=== PATIENT | female | born 1965 | race Caucasian/White ===

== ENCOUNTER → 2021-05-07 | Outpatient (CLI) | payer OTHER ==
[~2021-05-07] MED LIST: Aspir 8181 MG PO; Excedrin Extra1 EACH PO; FAMO20 PO; HYOS.125 SL; IBUP800 PO; LISI5 PO; OXYACE5T PO; Prilosec Otc20 MG; TENSION HEADAC1 EACH PO
[2021-05-09 16:10] LABS: HPV 16 Negative (Negative); HPV 18 Negative (Negative); HPV OTHER HR TYPES Negative (Negative)
== END ==
LOC: LAB SHORT 15:00 → LAB 15:00
PROVIDERS: Nurse Practitioner Family
DX: Z12.4 Encounter for screening for malignant neoplasm of cervix (principal); Z11.51 Encounter for screening for human papillomavirus (HPV)
CPT/HCPCS: 87624; G0123